=== PATIENT | male | born 1970 | race Two or more races ===

== ENCOUNTER 2021-09-03 19:00 | Emergency (ER) | payer OTHER ==
[~2021-09-03] VITALS: Ht 170.2 cm; Wt 65.8 kg
--- NOTE | 2021-09-03 19:10 | NUR ---
PATIENT BIBRA 89 C/O BILATERAL PAIN FROM WALKING ALL DAY. PT DENIES ANY MEDICAL HX. PATIENT IS A/O X 4, RR EVEN AND UNLABORED, NO SOB NOTED, PATIENT CONNECTED TO MONITORS.
[2021-09-03 21:05] VITALS: BP 123/74
[2021-09-03] MEDS ORDERED: NAPR-1009 PO (21:21)
--- NOTE | 2021-09-03 21:32 | NUR ---
Patient discharged to home in stable condition. Written and verbal after care instructions given. Patient verbalizes understanding of instruction. PT ambulatory with a steady gait
[2021-09-03] MEDS ORDERED: IBUP-1957 PO (23:56)
== END 2021-09-03 21:44 | disposition home or self-care (01) ==
LOC: ER 20:16
DX: M25.561 Pain in right knee (principal); M25.562 Pain in left knee
CPT/HCPCS: 73564-TC

== ENCOUNTER 2021-09-03 23:06 | Emergency (ER) | payer OTHER ==
[~2021-09-03] VITALS: Ht 167.6 cm; Wt 70.8 kg
[~2021-09-03 23:06] MED LIST: NAPR-1009 PO
[2021-09-03 23:12] VITALS: BP 110/80
[2021-09-03] MEDS ORDERED: IBUP-1957 PO (23:56)
[2021-09-04] MEDS ORDERED: KETOROLAC TROMETHAMINE INJ 30 MG/ML VIAL IM ONE
[2021-09-04] MEDS ORDERED: KETOROLAC TROMETHAMINE INJ 30 MG/ML VIAL ONE (00:16)
--- NOTE | 2021-09-04 00:18 | NUR ---
Patient discharged to home in stable condition. Rx and Written and verbal after care instructions given. Patient verbalizes understanding of instruction.
== END 2021-09-04 00:22 | disposition home or self-care (01) ==
LOC: ER 23:09
DX: M25.561 Pain in right knee (principal); M25.562 Pain in left knee; Z59.00 Homelessness unspecified; Z79.899 Other long term (current) drug therapy
CPT/HCPCS: 96372; 99283; J1885